=== PATIENT | male | born 1970 | race Caucasian/White ===

== ENCOUNTER 2018-04-21 19:42 | Emergency (ER) | payer BC, OTHER, MEDICAID ==
[2018-04-21] MEDS: CLINDAMYCIN 150 MG CAP PO (21:43)
[2018-04-21] MEDS: LIDOCAINE VISCOUS 2% SOLN 15ML UDC SSP (21:44)
== END 2018-04-21 22:03 | disposition home or self-care (01) ==
LOC: M ED 19:42
DX: K04.7 Periapical abscess without sinus (principal); K02.9 Dental caries, unspecified; Z87.891 Personal history of nicotine dependence; Z79.899 Other long term (current) drug therapy; Z88.8 Allergy status to other drugs, medicaments and biological substances
CPT/HCPCS: 99282

== ENCOUNTER → 2020-01-31 | Outpatient (REF) | payer OTHER ==
[~2020-01-31] MED LIST: AMBI10TA PO; CLEO300C2 PO; CYCL-707 PO; GABA-845 PO; HYDR-3363 PO; LIDO2SO SSP; NAPR-885 PO; ZOLO100T PO
[2020-03-26 10:39] LABS: ALBUMIN 4.2 GM/DL (3.2-5.2); ALT/SGPT 40 U/L (12-78); BILIRUBIN,TOTAL 0.3 MG/DL (0.2-1.0); BLOOD UREA NITROGEN 11 MG/DL (7-18); CALCIUM LEVEL 8.9 MG/DL (8.5-10.1); CARBON DIOXIDE LEVEL 30 MEQ/L (21-32); CHLORIDE LEVEL 105 MEQ/L (98-107); CREATININE FOR GFR 0.94 MG/DL (0.70-1.30); GLOMERULAR FILTRATION RATE > 60.0 (>60); GLUCOSE, FASTING 83 MG/DL (70-100); IRON (FE) 69 UG/DL (65-175); POTASSIUM SERUM 4.5 MEQ/L (3.5-5.1); SODIUM LEVEL 139 MEQ/L (136-145); TESTOSTERONE 565 NG/DL (241-827); THYROID STIMULATING HORMONE 0.707 uIU/ML (0.358-3.740); TOTAL 25(OH) VITAMIN D 45.2 NG/ML (30.0-100.0); TOTAL PROTEIN 7.2 GM/DL (6.4-8.2); VITAMIN B12 LEVEL 968 PG/ML (247-911)
== END ==
LOC: M LAB REF 14:58
PROVIDERS: ATTEND Physician Assistant
DX: R53.83 Other fatigue (principal)